=== PATIENT | male | born 1945 | race Caucasian/White ===

== ENCOUNTER 2019-12-05 05:50 | Inpatient (IN) | payer MEDICARE ==
[~2019-12-05] VITALS: Ht 185.4 cm; Wt 92.0 kg
[2019-12-05 06:34] VITALS: BP 156/72
[2019-12-05] MEDS ORDERED: ATOR-2 PO (06:34)
[2019-12-05] MEDS ORDERED: GABA300C PO (06:34)
[2019-12-05] MEDS ORDERED: ASPI-496 PO (06:34)
[2019-12-05] MEDS ORDERED: MULT-658 PO (06:34)
[2019-12-05] MEDS ORDERED: LEVO50TA PO (06:34)
[2019-12-05] MEDS ORDERED: LACTATED RINGERS 1,000 ML IV SCH (06:42)
[2019-12-05] MEDS ORDERED: methylPREDNISolone *ACETATE* 40 MG/ML ONE (06:59)
[2019-12-05] MEDS ORDERED: BUPIVACAINE/EPI 0.5% 1:200K ONE (06:59)
[2019-12-05] MEDS ORDERED: CHLORHEXIDINE 15 ML UDC MM ONE (07:00)
[2019-12-05] MEDS ORDERED: BACITRACIN 50,000 UNIT ONE (07:00)
[2019-12-05] MEDS ORDERED: BACITRACIN OINT 500U/GM, 15 GM ONE (07:00)
[2019-12-05] MEDS ORDERED: VANCOMYCIN 1,000 MG ONE (07:00)
[2019-12-05] MEDS ORDERED: FENTANYL PF 250 MCG/5ML ONE (07:25)
[2019-12-05] MEDS ORDERED: LIDOCAINE PF 2%, 5ML ONE (07:40)
[2019-12-05] MEDS ORDERED: LORazepam 2 MG/ML, 1ML IVPush PRN (08:30)
[2019-12-05] MEDS ORDERED: MEPERIDINE/PF 25MG/0.5ML IVPush PRN (08:30)
[2019-12-05] MEDS ORDERED: PROMETHAZINE 25 MG/ML, 1ML IVPush PRN (08:30)
[2019-12-05] MEDS ORDERED: LABETALOL 5MG/ML, 20ML IV PRN (08:30)
[2019-12-05] MEDS ORDERED: hydrALAzine 20 MG/ML, 1ML IV PRN (08:30)
[2019-12-05] MEDS ORDERED: ONDANSETRON 2MG/ML, 2ML IVPush PRN (08:30)
[2019-12-05] MEDS ORDERED: HYDROmorphone 1 MG/ML, 1ML INJ IVPush PRN (08:30)
[2019-12-05] MEDS ORDERED: ACETAMINOPHEN 325 MG TABLET PO PRN ×2 (08:30→09:30)
[2019-12-05] MEDS ORDERED: PROMETHAZINE 25 MG SUPP PR PRN (08:30)
[2019-12-05] MEDS ORDERED: ONDANSETRON 2MG/ML, 2ML ONE (08:35)
[2019-12-05] MEDS ORDERED: CEFAZOLIN 1,000 MG ONE (08:35)
[2019-12-05] MEDS ORDERED: ROCURONIUM 10MG/ML,5ML ONE (08:35)
[2019-12-05] MEDS ORDERED: GLYCOPYRROLATE 0.2MG/1ML, 5ML ONE (08:35)
[2019-12-05] MEDS ORDERED: PROPOFOL 10 MG/ML, 20ML ONE (08:35)
[2019-12-05] MEDS ORDERED: DEXAMETHASONE 4 MG/ML, 1ML ONE (08:35)
[2019-12-05] MEDS ORDERED: NEOSTIGMINE 1 MG/ML, 10ML ONE (08:35)
[2019-12-05] MEDS ORDERED: SUCCINYLCHOLINE 20 MG/ML, 10ML ONE (08:35)
[2019-12-05] MEDS ORDERED: PHARMACY MAY ADJ FOR RENAL FX MC PRN (09:30)
[2019-12-05] MEDS ORDERED: morphine SULFATE 10 MG/ML, 1ML IVPush PRN (09:30)
[2019-12-05] MEDS ORDERED: OXYcodone/APAP 5/325MG TABLET PO PRN (09:30)
[2019-12-05] MEDS ORDERED: SENNA/DOCUSATE TABLET PO PRN (09:30)
[2019-12-05] MEDS ORDERED: MAGNESIUM HYDROXIDE 8%, 30ML UDC PO PRN (09:30)
[2019-12-05] MEDS ORDERED: METHOCARBAMOL 1,000 MG in DEXTROSE 5% 100 ML IV PRN (09:30)
[2019-12-05] MEDS ORDERED: FENTANYL PF 100 MCG/2ML ONE (09:48)
[2019-12-05] MEDS ORDERED: OXYcodone 5 MG/5 ML ORAL.SOL UDC ONE ×2 (09:48→10:53)
[2019-12-05] MEDS: FENTANYL PF 100 MCG/2ML IV PRN ×2 (09:50→10:15)
[2019-12-05] MEDS: OXYcodone 5 MG/5 ML ORAL.SOL UDC PO PRN ×2 (10:15→10:55)
[2019-12-05] MEDS ORDERED: GLYCOPYRROLATE 0.4 MG/2 ML, 2ML ONE (11:39)
[2019-12-05 14:05] VITALS: BP 135/77
[2019-12-05 19:58] VITALS: BP 148/68
[2019-12-05] MEDS: CYCLOBENZAPRINE 10 MG TABLET PO PRN (23:33)
[2019-12-06 01:10] VITALS: BP 163/65
[2019-12-06 04:53] VITALS: BP 160/70
[2019-12-06 06:31] LABS: BASOPHILS # (AUTO) 0.02 x10^3/uL (0-0.1); BASOPHILS % (AUTO) 0 % (0-1); EOSINOPHILS % (AUTO) 0 % (1-7); LYMPHOCYTES # (AUTO) 1.21 x10^3/uL (1-3.4); LYMPHOCYTES % (AUTO) 9 % (22-44); MD NO; MEAN CORPUSCULAR HEMOGLOBIN 32.6 pg (27.5-34.5); MEAN CORPUSCULAR HGB CONC 32.3 g/dL (33.2-36.2); MEAN PLATELET VOLUME 8.1 fL (7.4-10.4); MONOCYTES # (AUTO) 1.31 x10^3/uL (0.2-0.8); MONOCYTES % (AUTO) 10 % (2-9); NEUTROPHILS # (AUTO) 11.01 x10^3/uL (1.8-6.8); NEUTROPHILS % (AUTO) 81 % (42-75); PLATELET COUNT 160 x10^3/uL (130-400); RED BLOOD COUNT 4.25 x10^6/uL (4.38-5.82); RED CELL DISTRIBUTION WIDTH 13.8 % (9.4-14.8)
[2019-12-06 06:44] LABS: ALBUMIN 2.9 g/dL (3.4-5.0); ANION GAP 4 mmol/L (5-15); CALCIUM 8.2 mg/dL (8.5-10.1); CHLORIDE 110 mmol/L (98-107); CREATININE 0.78 mg/dL (0.7-1.3)
[2019-12-06 07:02] VITALS: BP 164/73
[2019-12-06 13:31] VITALS: BP 161/75
[2019-12-06 19:08] VITALS: BP 169/80
[2019-12-06] MEDS: CYCLOBENZAPRINE 10 MG TABLET PO PRN (22:25)
[2019-12-07 00:46] VITALS: BP 178/75
[2019-12-07 05:54] LABS: MEAN CORPUSCULAR HEMOGLOBIN 33.1 pg (27.5-34.5); MEAN CORPUSCULAR HGB CONC 32.7 g/dL (33.2-36.2); MEAN PLATELET VOLUME 8.4 fL (7.4-10.4); PLATELET COUNT 141 x10^3/uL (130-400); RED CELL DISTRIBUTION WIDTH 14.3 % (9.4-14.8)
[2019-12-07 06:16] LABS: BASOPHILS % (AUTO) 0 % (0-1); EOSINOPHILS # (AUTO) 0.01 x10^3/uL (0-0.4); EOSINOPHILS % (AUTO) 0 % (1-7); LYMPHOCYTES # (AUTO) 1.78 x10^3/uL (1-3.4); LYMPHOCYTES % (AUTO) 17 % (22-44); MD SCAN; MONOCYTES # (AUTO) 1.54 x10^3/uL (0.2-0.8); MONOCYTES % (AUTO) 15 % (2-9); NEUTROPHILS % (AUTO) 68 % (42-75)
[2019-12-07 08:02] VITALS: BP 148/81
== END 2019-12-07 10:47 | disposition home or self-care (01) | DRG 517 ==
LOC: OUT 05:50 → ORIP 09:26 → 4NE 12:04 → DCLOUNGE 12-07 10:41
PROVIDERS: ADMIT Neurological Surgery; ATTEND Neurological Surgery
PROC: 01N80ZZ Release Thoracic Nerve, Open Approach (ICD-10-PCS; principal; 2019-12-05 07:30)
DX: M47.24 Other spondylosis with radiculopathy, thoracic region (principal); Z20.828 Contact with and (suspected) exposure to other viral communicable diseases; M51.14 Intervertebral disc disorders with radiculopathy, thoracic region; M48.04 Spinal stenosis, thoracic region
CPT/HCPCS: 36415; 72072; 80048; 82040; 85025; 87635; 93005; G0378; J0690; J1100; J2405; J2704; J2710; J3010; J3370; J0330; J1030; J7120